=== PATIENT | male | born 1955 | race Caucasian/White ===

== ENCOUNTER 2025-07-19 01:56 | Emergency (ER) | payer OTHER, MEDICARE ==
[~2025-07-19] VITALS: Ht 182.9 cm; Wt 77.1 kg
--- NOTE | 2025-07-19 02:08 | ERN ---
ED Note History of Present Illness Stated Complaint: SUICIDAL IDEATION Chief Complaint: Suicidal Ideation Time Seen by MD: 02:03 Dictation: This is a 66-year-old male who was brought by EMS for evaluation of suicidal ideations. Apparently for the past 3 days patient has been wanting to basically stating I just Wanna and he has been drinking all day today. He denied any plan for his suicide attempt. He says that it has been extremely difficult for the past many months that he did not want to live anymore. Afebrile heart rate is 102 respirations 18 blood pressure 162/82 with a pulse oximetry of 99% on room air His chronic medical problems include diabetes mellitus, hypertension, hypercholesterolemia and history of bariatric surgery 4 years ago Allergies: Coded Allergies: No Known Drug Allergies (Unverified Allergy, Unknown, 07/19/25) Past Medical History Past Medical History: Diabetes-Type II, High Cholesterol, Hypertension Surgical History: Other, Bariatric Surgery Surgical History Other: GASTRIC BYPASS 4YEARS AGO Family History: Negative Social History: ETOH RN Note Reviewed/Agreed w/PFSH: Yes Review of System Dictation Constitutional: Negative for fever,chills, and weight loss Eyes: Negative for injury, pain,redness, and discharge ENT: Negative for injury,pain or swelling Cardiovascular: Negative for chest pain, palpitations, and edema Respiratory: Negative for shortness of breath, cough, and wheezing, Abdomen/GI: Negative for abdominal pain, nausea, vomiting, diarrhea, and constipation Back: Negative for injury and pain : Negative for injury, bleeding and discharge MS/Extremity: Negative for injury and deformity Skin: Negative for rash, and discoloration Neuro: Negative for headache, weakness, numbness, tingling, and seizure Psych: Positive for suicide ideation, negative homicidal ideation, and hallucinations Initial Vital Sign VS Vital Signs Date Time Temp Pulse Resp B/P (MAP) Pulse Ox O2 Delivery O2 Flow Rate FiO2 07/19/25 01:57 102 18 162/82 99 Room Air 07/19/25 03:46 0 21 07/19/25 08:07 98.8 Physical Exam Dictation General: awake, alert, NAD Head/Face: Normocephalic, atraumatic Eyes: PERRL, EOMI, vision at baseline ENT: oral cavity clear, TMs clear, no signs of infection, missing teeth and poor dentition Neck: Trachea midline, supple, no nuchal rigidity Cardiovascular: RRR, normal S1/S2, No MRGs, no JVD Respiratory: CTAB, no respiratory distress, No rales or wheezes Abdomen: Soft, non-tender, non-distended, normal bowel sounds, no guarding or rebound. Old healed scars from his gastric bypass surgery Skin: Warm, dry, normal turgor, no rash MS/Extremity: Pulses equal, no cyanosis, neurovascular intact, FROM Neuro: COAx4, GCS 15, strength 5/5, CN 2-12 intact, normal cerebellar exam, normal gait, Psych: Anxious and tearful but very cooperative Extremities-trace edema without any palpable cords, Homans sign is negative Results (Laboratory/Radiology) Laboratory/Radiology Laboratory Tests Test 07/19/25 02:15 07/19/25 02:18 07/19/25 05:17 Urine Opiates Screen NEGATIVE (NEGATIVE) Urine Barbiturates Screen NEGATIVE (NEGATIVE) Urine Phencyclidine Screen NEGATIVE (NEGATIVE) Urine Amphetamines Screen NEGATIVE (NEGATIVE) Urine Benzodiazepines Screen NEGATIVE (NEGATIVE) Urine Cocaine Screen NEGATIVE (NEGATIVE) Urine Marijuana (THC) Screen NEGATIVE (NEGATIVE) White Blood Count 9.2 K/uL (4.8-10.8) Red Blood Count 3.59 MIL/uL (4.50-6.20) L Hemoglobin 11.4 g/dL (14.0-18.0) L Hematocrit 34.2 % (42-54) L Mean Corpuscular Volume 95.3 fL (79-99) Mean Corpuscular Hemoglobin 31.8 pg (27.0-33.0) Mean Corpuscular Hemoglobin Concent 33.3 g/dL (32.0-36.0) Red Cell Distribution Width 14.7 % (11.0-15.5) Platelet Count 205 K/uL (130-400) Mean Platelet Volume 8.4 fL (7.5-10.5) Immature Granulocyte % (Auto) 0.3 % (0-1) Neutrophils (%) (Auto) 69.0 % (40.0-77.0) Lymphocytes (%) (Auto) 11.1 % (21.0-51.0) L Monocytes (%) (Auto) 18.0 % (3.0-13.0) H Eosinophils (%) (Auto) 0.8 % (0.0-8.0) Basophils (%) (Auto) 0.8 % (0.0-5.0) Neutrophils # (Auto) 6.4 K/uL (1.8-7.7) Lymphocytes # (Auto) 1.0 K/uL (1.0-4.8) Monocytes # (Auto) 1.7 K/uL (0.1-1.0) H Eosinophils # (Auto) 0.07 K/uL (0.00-0.70) Basophils # (Auto) 0.07 K/uL (0.00-0.20) Absolute Immature Granulocyte (auto 0.03 K/uL (0-1) Nucleated Red Blood Cells 0.0 % (0.0-0.19) White Cell Morphology Comment See comments Sodium Level 129 mmol/L (136-145) L Potassium Level 4.1 mmol/L (3.5-5.1) Chloride Level 94 mmol/L (101-111) L Carbon Dioxide Level 26 mmol/L (21-32) Blood Urea Nitrogen 5 mg/dL (7-18) L Creatinine 0.7 mg/dL (0.5-1.3) Glomerular Filtration Rate Calc 100 mL/min (>90) Random Glucose 105 mg/dL (70-105) Total Calcium 8.3 mg/dL (8.5-10.1) L Salicylates Level < 2.8 mg/dL (2.8-20.0) L Acetaminophen Level < 1 mcg/mL (10-29) L Serum Alcohol 94 mg/dL (0-10) H 7 mg/dL (0-10) Labs Reviewed?: Yes ED Course ED Course Orders Procedure Category Date Status Time Cbc With Differential LAB 07/19/25 Complete 02:03 Basic Metabolic Panel LAB 07/19/25 Complete 02:03 Drug Screen Urine LAB 07/19/25 Complete 02:03 Acetaminophen LAB 07/19/25 Complete 02:03 Salicylate LAB 07/19/25 Complete 02:03 Alcohol, Blood LAB 07/19/25 Complete 02:03 Lorazepam 0.5 Mg PHA 07/19/25 Complete (Ativan) 03:00 Thiamine Hcl (Vitamin PHA 07/19/25 Complete B-1) 03:00 0.9%Nacl 1000ml (Ns PHA 07/19/25 Complete 1000ml) 03:30 Ketorolac PHA 07/19/25 Complete Tromethamine 15mg/Ml 04:30 Ketorolac PHA 07/19/25 Complete Tromethamine 15mg/Ml 04:19 Alcohol, Blood LAB 07/19/25 Complete 05:18 Current Medications Medications (Trade) Dose Ordered Sig/Tara Route PRN Reason Start Time Stop Time Status Last Admin Dose Admin Ketorolac Tromethamine (toRADol) 15 mg ONCE ONCE IV 07/19/25 04:30 07/19/25 04:31 DC 07/19/25 04:25 Ketorolac Tromethamine (toRADol) 15 mg STK-MED ONCE .ROUTE 07/19/25 04:19 07/19/25 04:19 DC Lorazepam (AtiVAN) 0.5 mg ONCE ONCE PO 07/19/25 03:00 07/19/25 03:01 DC 07/19/25 02:57 Sodium Chloride 1,000 ml @ 0 mls/hr ONCE ONCE IV 07/19/25 03:30 07/19/25 03:31 DC 07/19/25 03:39 Thiamine HCl (Vitamin B-1) 100 mg ONCE ONCE PO 07/19/25 03:00 07/19/25 03:01 DC 07/19/25 02:57 Vital Signs Date Time Temp Pulse Resp B/P (MAP) Pulse Ox O2 Delivery O2 Flow Rate FiO2 07/19/25 08:07 98.8 105 18 150/110 99 Room Air* 0 07/19/25 06:22 114 18 138/68 97 Room Air* 0 07/19/25 05:03 115 18 131/67 97 Room Air* 0 07/19/25 03:46 113 18 149/73 97 Room Air* 0 07/19/25 01:57 102 18 162/82 99 Room Air We will perform diagnostic labs, advanced imaging and administer medications according to the patient's complaint. Once the results are available, will review and personally interpreted the labs to rule out any acute life- threatening emergency the trach require immediate intervention and treatment. I will then re-evaluate the patient after treatment and diagnostic exams have return to determine whether the patient requires any further testing, can safely be discharged home or need further admission to hospital for additional treatment and evaluation. 3:00 a.m.. labs reviewed CBC is with a normal limits except for hemoglobin of 11.4. BNP 7 is significant for a sodium of 129 chloride 94. ETOH level is 94. Salicylate and Tylenol levels are negative. Urine drug screen is negative. Anxiolytic and thiamine given Gentle hydration. Behavioral health evaluation. 6:30 a.m. behavioral health specialist has been consulted last night and still awaiting their arrival, patient resting comfortably Medical Decision Making MDM MDM: Differential diagnosis: Suicidal ideation, psychiatric illness, Rationale: Tests considered and ordered secondary to shared decision making include: Previous outside records reviewed: Old ER visits. Risk of complication and/or morbidity or mortality of patient management: None Medications-Per medication reconciliation Need for hospitalization: Patient does not meet criteria for hospitalization. Need for emergency major/minor surgery: No Patient is a 69-year-old male coming in for psych evaluation for possible inpatient psych treatment. Patient was evaluated by mental health facility but patient does not meet criteria for inpatient psych treatment outpatient psych treatment has been scheduled by mental health facility. Patient will be discharged stable condition. Problem List Problem List: (1) Depression with suicidal ideation (2) Medical clearance for psychiatric admission (3) Dehydration (4) Alcohol intoxication DX & DISP Disposition: Discharge Departure Impression: Primary Impression: Medical clearance for psychiatric admission Additional Impressions: Dehydration, Alcohol intoxication Condition: Stable Additional Instructions: FOLLOW-UP WITH PRIMARY CARE PROVIDER IN 1 TO 2 DAYS. TAKE MEDICATIONS DIRECTED HERE IN THE EMERGENCY ROOM. OKAY TO CONTINUE HOME MEDICATIONS UNLESS OTHERWISE DISCUSSED DURING YOUR VISIT IN THE EMERGENCY ROOM TODAY. RETURN TO YOUR NEAREST EMERGENCY ROOM IF SYMPTOMS WORSEN OR IF THERE IS NO IMPROVEMENT. CALL 911 IF YOU NEED IMMEDIATE ASSISTANCE. TAKE TYLENOL [id number] NEEDED AND IF NO CONTRAINDICATIONS ARE PRESENT. INCREASE ORAL HYDRATION. A WOUND CULTURE OR URINE CULTURE WAS ORDERED HERE IN THE EMERGENCY ROOM DEPARTMENT PLEASE FOLLOW-UP WITH PRIMARY CARE PROVIDER AND ADVISE THEM TO GET REPORTS FROM OUR FACILITY. IF YOU HAD ANY DORINA WRAP/SPLINTS THAT WERE APPLIED HERE, PLEASE DO NOT REMOVE THEM UNTIL YOU SEE YOUR PRIMARY CARE OR SPECIALTY. Referrals: Referrals: CARLITA CASTILLO MD Time of Disposition: 08:10 JOSE VERDIN MD Jul 19, 2025 02:08 HORACE MEEKS MD Jul 19, 2025 08:10
--- NOTE | 2025-07-19 02:16 | NUR ---
PT PROVIDED PAPER GOWN. 1 TO 1 SITTER AT THE BEDSIDE. PT IS AAOX4. PT IS PLEASANT AND COOPERATIVE DURING INTERACTIONS. MAINTAINS GOOD EYE CONTACT AND FOLLOWS VERBAL COMMANDS WITHOUT HESITATION. NO SIGNS OF AGITATION OR DISTRESS NOTED AT THIS TIME.
[2025-07-19 02:26] LABS: IMMATURE GRANULOCYTE ABSOLUTE 0.03 K/uL (0-1); NUCLEATED RED BLOOD CELLS 0.0 % (0.0-0.19); PLATELET COUNT (AUTO) 205 K/uL (130-400); RED BLOOD CELL COUNT(AUTO) 3.59 MIL/uL (4.50-6.20); RED CELL DISTRIBUTION WIDTH 14.7 % (11.0-15.5); WHITE BLOOD COUNT (AUTO) 9.2 K/uL (4.8-10.8)
--- NOTE | 2025-07-19 02:37 | NUR ---
PT BELONGINGS PICKED UP BY SECURITY AT THIS TIME.
[2025-07-19 02:43] LABS: AMPHET/METH SCREEN,URINE NEGATIVE (NEGATIVE); BARBITURATE SCREEN, URINE NEGATIVE (NEGATIVE); CANNABINOID SCREEN,URINE NEGATIVE (NEGATIVE); COCAINE SCREEN,URINE NEGATIVE (NEGATIVE)
[2025-07-19 02:44] LABS: CREATININE 0.7 mg/dL (0.5-1.3); GLOMERULAR FILTR. RATE CALC 100 mL/min (>90); GLUCOSE,RANDOM 105 mg/dL (70-105); SODIUM SERUM 129 mmol/L (136-145); UREA NITROGEN, BLOOD 5 mg/dL (7-18)
[2025-07-19 02:47] LABS: ALCOHOL, BLOOD 94 mg/dL (0-10)
[2025-07-19] MEDS: THIAMINE HCL 100 MG TABLET PO ONE (02:57)
[2025-07-19] MEDS: 0.9%NACL 1000ML 1,000 ML IV ONE (03:39)
--- NOTE | 2025-07-19 06:08 | NUR ---
PER ED MD; PATIENT MEDICALLY CLEAR FOR SCREENING
--- NOTE | 2025-07-19 06:08 | NUR ---
[facility] SCREENER PAGED FOR SCREENING SERVICES
[2025-07-19 08:07] VITALS: BP 150/110; PULSE 105; RESP 18; TEMP 98.7; O2SAT 99
--- NOTE | 2025-07-19 08:08 | NUR ---
patient evaluated and cleared by [facility]. patient does not meet tropical's criteria
--- NOTE | 2025-07-19 08:46 | NUR ---
per [facility] screener, an hpd officer will provide a courtesy ride home. patient taken to lobby to wait for the hpd officer
== END 2025-07-19 08:48 | disposition home or self-care (01) ==
LOC: EDBD 01:56 → EDH 01:56
DX: E86.0 Dehydration (principal); F10.129 Alcohol abuse with intoxication, unspecified; E11.9 Type 2 diabetes mellitus without complications; E78.00 Pure hypercholesterolemia, unspecified; I10 Essential (primary) hypertension; Z98.84 Bariatric surgery status; Z68.23 Body mass index [BMI] 23.0-23.9, adult
CPT/HCPCS: 99283; 96374; 96361; 80048; 80305; 85025; 36415; J1885; G0481; J7030

== ENCOUNTER 2025-10-21 17:01 | Emergency (ER) | payer OTHER, MEDICAID ==
[~2025-10-21] VITALS: Ht 180.3 cm; Wt 77.1 kg
[~2025-10-21 17:01] MED LIST: DULO60CA64 PO; HYDR-3421 PO; MELA3CAP2 PO; PANT40TA54 PO; ZOLP5TAB16 PO
--- NOTE | 2025-10-21 17:10 | ERN ---
ED Note History of Present Illness Stated Complaint: SI Chief Complaint: Suicidal Ideation Time Seen by MD: 17:06 Dictation: PATIENT IS A 70-YEAR-OLD MALE ARRIVING TO THE HOSPITAL VIA EMS WITH COMPLAINTS OF BEING DEPRESSED FOR COOL A LONG TIME AND TODAY BECOMING SUICIDAL. HE STATES HE DOES NOT HAVE A PLAN HOWEVER HE STATES HE HAS BEEN VERY VERY DEPRESSED HAS BEEN DEPRESSED IN THE PAST. HE DOES NOT HAVE A PSYCHIATRIST OR PRIMARY CARE DOCTOR. HE DENIES ANY INTENTIONAL OVERDOSE THIS TODAY DENIES DRUG USE. Allergies: Coded Allergies: No Known Drug Allergies (Unverified Allergy, Unknown, 07/19/25) Home Meds Active Scripts Pantoprazole Sodium (Pantoprazole Sodium) 40 Mg Tablet.dr, 1 TAB PO BIDAC for 30 Days, #60 TAB 0 Refills Prov:STACIE ONTIVEROS MD 08/06/25 Reported Medications Melatonin (Melatonin) 3 Mg Capsule, 1 CAP PO HS for 30 Days, #30 CAP 0 Refills 08/03/25 Duloxetine HCl (Duloxetine HCl) 60 Mg Capsule.dr, 60 MG PO BID 08/03/25 Zolpidem Tartrate (Zolpidem Tartrate) 5 Mg Tablet, 5 MG PO HS 08/03/25 Hydroxyzine HCl (Hydroxyzine HCl) 25 Mg Tablet, 25 MG PO TID 08/03/25 Past Medical History Past Medical History: Diabetes-Type II, High Cholesterol, Hypertension Surgical History: Appendectomy, Other, Bariatric Surgery Surgical History Other: HERNIA Family History: Negative Social History: ETOH RN Note Reviewed/Agreed w/PFSH: Yes Review of System Dictation CONSTITUTIONAL: NEGATIVE EXCEPT FOR HPI HEAD/FACE: NEGATIVE EXCEPT FOR HPI EENT: NEGATIVE EXCEPT FOR HPI RESPIRATORY: NEGATIVE EXCEPT FOR HPI GASTROINTESTINAL/ABDOMINAL: NEGATIVE EXCEPT FOR HPI GENITOURINARY: NEGATIVE EXCEPT FOR HPI MUSCULOSKELETAL: NEGATIVE EXCEPT FOR HPI INTEGUMENTARY: NEGATIVE EXCEPT FOR HPI NEUROLOGICAL/PSYCH: NEGATIVE EXCEPT FOR HPI DEPRESSION WITH SUICIDAL IDEATION, NO PLAN HEMATOLOGIC/LYMPHATIC: NEGATIVE EXCEPT FOR HPI ALL SYSTEMS NEGATIVE, EXCEPT NOTED ABOVE. 13 POINT REVIEW OF SYSTEMS ASSESSED AND ALL NEGATIVE EXCEPT FOR ABOVE. Initial Vital Sign VS Vital Signs Date Time Temp Pulse Resp B/P (MAP) Pulse Ox O2 Delivery O2 Flow Rate FiO2 10/21/25 17:04 98.4 105 18 123/88 95 Room Air 0 10/21/25 18:17 21 Physical Exam Dictation VITAL SIGNS REVIEWED GENERAL APPEARANCE: ALERT, ORIENTED X 3, NO ACUTE DISTRESS, WELL DEVELOPED, NOURISHED. FLAT AFFECT HEAD AND FACE: NON-TRAUMATIC. EYES: PERRL, PINK CONJUNCTIVAS, EYELID NO TRAUMA, ANTERIOR CHAMBER WITH ARCUS SENILIS. EARS: PINNAS INTACT AND NO SIGNS OF TRAUMA OR ERYTHEMA EAR CANALS CLEAR AND NO DISCHARGE TM NO ERYTHEMA NOSE: NO DISCHARGE, NO BLEEDING. OROPHARYNX: MOUTH NORMAL, TONGUE PINK, PHARYNX CLEAR,NO ERYTHEMA, TONSILS NO EXUDATES, NO ABSCESSES NOTED, MUCOUS MEMBRANE MOIST NECK: SUPPLE, NON-TENDER, NO THYROMEGALY, NO MASSES, NO JVD, NO BRUITS BREAST:DEFERRED CHEST:NO TENDERNESS, NO CREPITUS, NO PARADOXICAL MOVEMENT, NO RETRACTIONS LUNGS:CLEAR, WELL-VENTILATED, SYMMETRIC, NO RALES, NO WHEEZING, NO RHONCHI, NO STRIDOR, GOOD BREATH SOUNDS BILATERALLY HEART: REGULAR RATE, REGULAR RHYTHM, NO MURMUR, NO GALLOPS VASCULAR: NO PERIPHERAL EDEMA, ABDOMEN: SOFT, POSITIVE BOWEL SOUNDS, NONDISTENDED, NO GUARDING, NONTENDER, NO REBOUND, NO MASSES NO HEPATOMEGALY, NO SPLENOMEGALY, NO SCHUSTER'S SIGN, NO HERNIAS. RECTAL: DEFERRED GENITAL: DEFERRED NEUROLOGICAL: NORMAL SPEECH, MOTOR FUNCTION INTACT, SENSORY FUNCTION INTACT PATIENT HAS A BLUNTED AFFECT. VOICES SUICIDAL IDEATION, NO PLAN. MUSCULOSKELETAL: NECK NONTENDER, FULL RANGE OF MOTION, BACK NONTENDER, FULL RANGE OF MOTION, EXTREMITIES: NONTENDER, FULL RANGE OF MOTION SKIN: COLOR PINK, DRY, NO TURGOR, NO RASH, NO LACERATIONS, NO ABRASIONS, NO CONTUSIONS. LYMPHATIC: DEFERRED Results (Laboratory/Radiology) Laboratory/Radiology Laboratory Tests Test 10/21/25 17:07 10/21/25 17:14 Urine Color LIGHT-YELLOW (YELLOW) Urine Appearance CLEAR (CLEAR) Urine pH 5.5 (5.0-8.0) Urine Specific [place] 1.012 (1.001-1.031) Urine Protein NEGATIVE mg/dL (NEGATIVE) Urine Glucose (UA) NEGATIVE mg/dL (NEGATIVE) Urine Ketones 5 mg/dL (NEGATIVE) H Urine Occult Blood NEGATIVE (NEGATIVE) Urine Nitrate NEGATIVE (NEGATIVE) Urine Bilirubin NEGATIVE mg/dL (NEGATIVE) Urine Urobilinogen 0.2 mg/dL (0.2-1.0) Urine Leukocyte Esterase NEGATIVE Eva/uL Urine Opiates Screen NEGATIVE (NEGATIVE) Urine Barbiturates Screen NEGATIVE (NEGATIVE) Urine Phencyclidine Screen NEGATIVE (NEGATIVE) Urine Amphetamines Screen NEGATIVE (NEGATIVE) Urine Benzodiazepines Screen NEGATIVE (NEGATIVE) Urine Cocaine Screen NEGATIVE (NEGATIVE) Urine Marijuana (THC) Screen NEGATIVE (NEGATIVE) White Blood Count 8.4 K/uL (4.8-10.8) Red Blood Count 4.52 MIL/uL (4.50-6.20) Hemoglobin 10.8 g/dL (14.0-18.0) L Hematocrit 35.2 % (42-54) L Mean Corpuscular Volume 77.9 fL (79-99) L Mean Corpuscular Hemoglobin 23.9 pg (27.0-33.0) L Mean Corpuscular Hemoglobin Concent 30.7 g/dL (32.0-36.0) L Red Cell Distribution Width 17.0 % (11.0-15.5) H Platelet Count 205 K/uL (130-400) Mean Platelet Volume 8.6 fL (7.5-10.5) Immature Granulocyte % (Auto) 0.5 % (0-1) Neutrophils (%) (Auto) 72.2 % (40.0-77.0) Lymphocytes (%) (Auto) 10.4 % (21.0-51.0) L Monocytes (%) (Auto) 15.0 % (3.0-13.0) H Eosinophils (%) (Auto) 0.5 % (0.0-8.0) Basophils (%) (Auto) 1.4 % (0.0-5.0) Neutrophils # (Auto) 6.1 K/uL (1.8-7.7) Lymphocytes # (Auto) 0.9 K/uL (1.0-4.8) L Monocytes # (Auto) 1.3 K/uL (0.1-1.0) H Eosinophils # (Auto) 0.04 K/uL (0.00-0.70) Basophils # (Auto) 0.12 K/uL (0.00-0.20) Absolute Immature Granulocyte (auto 0.04 K/uL (0-1) Nucleated Red Blood Cells 0.0 % (0.0-0.19) White Cell Morphology Comment See comments Red Blood Cell Morphology See comments Sodium Level 133 mmol/L (136-145) L Potassium Level 4.1 mmol/L (3.5-5.1) Chloride Level 99 mmol/L (101-111) L Carbon Dioxide Level 23 mmol/L (21-32) Blood Urea Nitrogen 7 mg/dL (7-18) Creatinine 0.9 mg/dL (0.5-1.3) Glomerular Filtration Rate Calc 92 mL/min (>90) Random Glucose 107 mg/dL (70-105) H Total Calcium 8.2 mg/dL (8.5-10.1) L Total Creatine Kinase 102 U/L (21-232) # Salicylates Level < 2.8 mg/dL (2.8-20.0) L Acetaminophen Level < 1 mcg/mL (10-29) L Serum Alcohol 6 mg/dL (0-10) Labs Reviewed?: Yes ED Course ED Course Orders Procedure Category Date Status Time Drug Screen Urine LAB 10/21/25 Complete 17:07 Suicide Precautions CPOE 10/21/25 Transmitted 17:07 Cbc With Differential LAB 10/21/25 Complete 17:07 Alcohol, Blood LAB 10/21/25 Complete 17:07 Salicylate LAB 10/21/25 Complete 17:07 Acetaminophen LAB 10/21/25 Complete 17:07 Urinalysis Profile LAB 10/21/25 Complete 17:07 Creatine Kinase, Total LAB 10/21/25 Complete 17:07 Basic Metabolic Panel LAB 10/21/25 Complete 17:07 Vital Signs Date Time Temp Pulse Resp B/P (MAP) Pulse Ox O2 Delivery O2 Flow Rate FiO2 10/21/25 20:32 99.0 110 18 123/69 98 Room Air* 0 10/21/25 18:17 98.2 90 16 129/73 99 Room Air* 0 10/21/25 17:04 98.4 105 18 123/88 95 Room Air 0 2140/SPOKE WITH ABIMAEL THE SCREENER FROM [facility] AND SHE STATES AFTER HER INTERVIEW WITH PATIENT THAT HE DOES NOT MEET CRITERIA FOR ADMISSION. HE WAS SAD BECAUSE HIS FRIEND HAD GONE OUT OF TOWN AND HE FELT DEPRESSED. HE WILL BE FOLLOWING A [facility] OUTPATIENT. Medical Decision Making MDM MDM: DIFFERENTIAL DIAGNOSIS: SUICIDALITY/HOMICIDALITY/POLYDRUG ABUSE/DEPRESSION/ELECTROLYTE IMBALANCE/DEHYDRATION/INTOXICATION RATIONALE: TESTS CONSIDERED AND ORDERED SECONDARY TO SHARED DECISION MAKING INCLUDE: LABS PREVIOUS OUTSIDE RECORDS REVIEWED: OLD ER VISITS. RISK OF COMPLICATION AND/OR MORBIDITY OR MORTALITY OF PATIENT MANAGEMENT: NONE MEDICATIONS-PER MEDICATION RECONCILIATION NEED FOR HOSPITALIZATION: PATIENT DOES NOT MEET CRITERIA FOR HOSPITALIZATION. PATIENT DOES NOT MEET IN HOSPITAL CRITERIA NEED FOR EMERGENCY MAJOR/MINOR SURGERY: NO THERE ARE NO SOCIAL CONCERNS WITH THIS PATIENT. PRESCRIPTION DRUG MANAGEMENT NONE PRESCRIPTIONS WILL INCLUDE SYMPTOMATIC CARE PATIENT'S PRIOR EXTERNAL MEDICAL RECORDS FROM OTHER ER VISITS WERE REVIEWED BY ME INDICATED. PRIOR TESTING AND RESULTS FROM PREVIOUS VISITS WERE REVIEWED. PRIOR TESTS WERE TAKEN INTO ACCOUNT WITH MEDICAL DECISION MAKING AND RESOURCE UTILIZATION, INDEPENDENT HISTORIAN/HISTORIANS WERE USED TO OBTAIN COMPLETE MEDICAL HISTORY. I INDEPENDENTLY INTERPRETED THE TEST THAT WERE PERFORMED, RESULTS WERE REVIEWED BY ME AND CONSIDERED FINDINGS ON RADIOLOGY IF ORDERED. MEDICAL MANAGEMENT AND EXAMINATION INTERPRETATION DISCUSSIONS WERE HAD BY ME WITH OTHER QUALIFIED HEALTHCARE PROFESSIONALS INDICATED FOR THE PATIENT'S CARE. DX & DISP Disposition: Discharge Departure Impression: Primary Impression: Passive suicidal ideations Additional Impressions: Chronic anemia, Hypocalcemia, Dehydration, Depression Condition: Stable Scripts Calcium Carbonate (Calcium) 500 Mg Calcium (1250 Mg) Tablet 1 TAB PO BID for 10 Days, #20 TAB 0 Refills Prov: SHAHZAD RACHEL 10/21/25 Additional Instructions: FOLLOW-UP WITH PRIMARY CARE PROVIDER IN 1 TO 2 DAYS. TAKE MEDICATIONS DIRECTED HERE IN THE EMERGENCY ROOM. OKAY TO CONTINUE HOME MEDICATIONS UNLESS OTHERWISE DISCUSSED DURING YOUR VISIT IN THE EMERGENCY ROOM TODAY. RETURN TO YOUR NEAREST EMERGENCY ROOM IF SYMPTOMS WORSEN OR IF THERE IS NO IMPROVEMENT. CALL 911 IF YOU NEED IMMEDIATE ASSISTANCE. TAKE TYLENOL OR MOTRIN [id number] NEEDED AND IF NO CONTRAINDICATIONS ARE PRESENT. INCREASE ORAL HYDRATION. A WOUND CULTURE OR URINE CULTURE WAS ORDERED HERE IN THE EMERGENCY ROOM DEPARTMENT PLEASE FOLLOW-UP WITH PRIMARY CARE PROVIDER AND ADVISE THEM TO GET REPEAT PORTS FROM OUR FACILITY. IF YOU HAD ANY DORINA WRAP/SPLINTS TH AT WERE APPLIED HERE, PLEASE DO NOT REMOVE THEM UNTIL YOU SEE YOUR PRIMARY CARE OR SPECIALTY. TAKE YOUR CALCIUM DIRECTED UNTIL GONE. INCREASE YOUR WATER INTAKE. FOLLOW UP WITH AMBAR SANTOYO IN THE NEXT 1-2 DAYS DIRECTED BY THE DIRECTOR OF PUBLIC HEALTH. Referrals: SELF,REFERRAL (PCP) Time of Disposition: 21:41 I have reviewed the case, and I agree with, Diagnosis and Plan SHAHZAD RACHEL Oct 21, 2025 17:10
[2025-10-21 17:19] LABS: IMMATURE GRANULOCYTE ABSOLUTE 0.04 K/uL (0-1); NUCLEATED RED BLOOD CELLS 0.0 % (0.0-0.19); PLATELET COUNT (AUTO) 205 K/uL (130-400); RED BLOOD CELL COUNT(AUTO) 4.52 MIL/uL (4.50-6.20); RED CELL DISTRIBUTION WIDTH 17.0 % (11.0-15.5); WHITE BLOOD COUNT (AUTO) 8.4 K/uL (4.8-10.8)
[2025-10-21 17:28] LABS: CREATININE 0.9 mg/dL (0.5-1.3); GLOMERULAR FILTR. RATE CALC 92 mL/min (>90); GLUCOSE,RANDOM 107 mg/dL (70-105); SODIUM SERUM 133 mmol/L (136-145); UREA NITROGEN, BLOOD 7 mg/dL (7-18)
[2025-10-21 17:32] LABS: ALCOHOL, BLOOD 6 mg/dL (0-10); CREATINE KINASE, TOTAL 102 U/L (21-232)
[2025-10-21 18:29] LABS: APPEARANCE,URINE CLEAR (CLEAR); GLUCOSE, URINE (UA) NEGATIVE (NEGATIVE); LEUKOCYTE ESTERASE ,URINE NEGATIVE Leu/uL (NEGATIVE); NITRATE,URINE NEGATIVE (NEGATIVE); OCCULT BLOOD,URINE NEGATIVE (NEGATIVE)
[2025-10-21 18:35] LABS: AMPHET/METH SCREEN,URINE NEGATIVE (NEGATIVE); BARBITURATE SCREEN, URINE NEGATIVE (NEGATIVE); CANNABINOID SCREEN,URINE NEGATIVE (NEGATIVE); COCAINE SCREEN,URINE NEGATIVE (NEGATIVE)
[2025-10-21 18:43] LABS: ADD UA MICROSCOPIC NO
--- NOTE | 2025-10-21 18:53 | NUR ---
YARELIS CALLED FOR PSYCH EVALUATION.
--- NOTE | 2025-10-21 19:05 | NUR ---
REPORT GIVEN TO CHLOE CLEMENT
--- NOTE | 2025-10-21 19:10 | NUR ---
[facility] CALLED MICA MINER BLASTING WILL BE HERE AROUND 2100
--- NOTE | 2025-10-21 20:35 | NUR ---
HALLEY SANTOYO AT BEDSIDE TO SPEAK TO PATIENT.
[2025-10-21] MEDS ORDERED: CALC-1038 PO (21:42)
[2025-10-21 22:05] VITALS: BP 126/76; PULSE 110; RESP 18; TEMP 98.5; O2SAT 98
--- NOTE | 2025-10-21 22:06 | NUR ---
PATIENT WAITING ON BELONGINGS FROM SECURITY. THEN HE STATES HE WILL ARRANGE FOR A RIDE.
== END 2025-10-21 22:25 | disposition home or self-care (01) ==
LOC: EDH 17:01
DX: R45.851 Suicidal ideations (principal); D64.9 Anemia, unspecified; E83.51 Hypocalcemia; E86.0 Dehydration; F32.A Depression, unspecified; E11.9 Type 2 diabetes mellitus without complications; E78.00 Pure hypercholesterolemia, unspecified; I10 Essential (primary) hypertension; Z90.49 Acquired absence of other specified parts of digestive tract; Z98.84 Bariatric surgery status
CPT/HCPCS: 99285; 82550; 80048; 80305; 85025; 36415; 81003; G0481; 99282